=== PATIENT | male | born 2000 | race Caucasian/White ===

== ENCOUNTER 2023-09-25 10:22 | Emergency (ER) | payer SELFPAY ==
[2023-09-25 11:01] VITALS: BP 144/97; PULSE 95; RESP 20; TEMP 37.1; O2SAT 97; BMI 32.3
--- NOTE | 2023-09-25 11:01 | ED_ITS ---
HPI - Nausea/Vomiting/Diarrhea General Chief complaint: GI Bleed Stated complaint: Vomiting blood Time Seen by Provider: 09/25/23 12:51 History of Present Illness HPI Narrative: Pt with 2 history of vomiting up bright red blood, hx stomach ulcers and vomiting blood with last diagnosed ulcer in February. Previously on Omeprazole for the ulcers but ran out. Wants to be tested to stomach cancer as it runs in the family. Discussed GI follow up and need for endoscopy. Denies ETOH use. Omeprazole sent to pharmacy as pt states his prescription ran out. Left without completing treatment Related Data Previous Rx's Medication Instructions Recorded omeprazole 20 mg capsule,delayed 20 mg PO DAILY #14 caps 09/25/23 release Allergies Allergy/AdvReac Type Severity Reaction Status Date / Time No Known Allergies Allergy Verified 09/25/23 11:03 [facility] Social History Social History Advance Directives: No Advance Directives Information Provided: No Physical Exam 2 Vital Signs: Vital Signs: Last Vital Signs Temp 98.8 F 09/25/23 11:01 Pulse 95 09/25/23 11:01 Resp 20 09/25/23 11:01 BP 144/97 H 09/25/23 11:01 Pulse Ox 97 09/25/23 11:01 O2 Del Method Room Air 09/25/23 11:01 BMI result Body Mass Index 32.3 Course Course Course Narrative: This is a rapid medical exam: Additional HPI, ROS, PE not included below will be deferred to primary provider. Pt with 2 history of vomiting up bright red blood, hx stomach ulcers and vomiting blood with last diagnosed ulcer in February. Previously on Omeprazole for the ulcers but ran out. Wants to be tested to stomach cancer as it runs in the family. Discussed GI follow up and need for endoscopy. Denies ETOH use. Omeprazole sent to pharmacy as pt states his prescription ran out. Left without completing treatment Medical Decision Making Lab Data 09/25/23 11:31 09/25/23 11:31 Labs: Lab Results 09/25/23 Range/Units 11:31 WBC 11.2 H (4.8-10.8) X10*3/uL RBC 5.40 (4.60-5.80) X10*6/uL Hgb 16.0 (14.0-18.0) g/dl Hct 46.9 (42.0-52.0) % MCV 86.9 (80.0-98.0) fL MCH 29.6 (27.0-33.0) pg MCHC 34.1 (31.0-36.0) g/dl RDW 13.5 (11.0-16.0) % Plt Count 297 (160-400) X10*3/uL MPV 9.2 L (9.4-12.4) fL Immature Gran % (Auto) 0.3 (0.0-0.4) % Neut % (Auto) 66.9 (45-73) % Lymph % (Auto) 20.1 (20-40) % [place] % (Auto) 11.4 H (2-11) % Eos % (Auto) 1.1 (0-4) % Baso % (Auto) 0.2 (0-2) % Lymph # (Auto) 2.2 (1.2-4.9) X10*3/uL [place] # (Auto) 1.3 H (0.1-1.2) X10*3/uL Eos # (Auto) 0.1 (0.0-0.4) X10*3/uL Baso # (Auto) 0.0 (0.0-0.2) X10*3/uL Abs Immat Gran (auto) 0.03 (0.00-0.03) X10*3/uL Absolute Neuts (auto) 7.5 (2.0-8.3) x10*3/uL Absolute Nucleated RBC 0.000 (0.0-0.012) X10*3/uL Nucleated RBC % (auto) 0.0 (0.0-0.2) /100WBC Sodium 138 (135-145) mmol/L Potassium 3.9 (3.3-5.1) mmol/L Chloride 105 (96-108) mmol/L Carbon Dioxide 28 (22-29) mmol/L Anion Gap 9 L (12-20) BUN 11 (9-16) mg/dL Creatinine 0.80 (0.5-1.4) mg/dL Estim Creat Clear Calc 151.4 Estimated GFR > 60 Random Glucose 94 (60-115) mg/dL Calcium 9.5 (8.4-10.2) mg/dL Total Bilirubin 1.2 H (0.0-1.0) mg/dL AST 17 (5-37) U/L ALT 31 (0-40) U/L Alkaline Phosphatase 62 (39-117) U/L Total Protein 7.5 (6.5-8.0) g/dL Albumin 4.1 (3.5-5.0) g/dL Discharge Plan Discharge Clinical Impression: Left before treatment completed Patient Disposition: Left W/O Completing Treatment Prescriptions: New omeprazole 20 mg capsule,delayed release(DR/EC) 20 mg PO DAILY Qty: 14 0RF Referrals: [facility] [place] Gastroenterology Services [Provider Group] [facility] [place] [facility] [place] [facility] [place]Provider Group[place] [facility] [place] [facility] [place]] Stand Alone Forms: Work/School Release Interventions: LWBS Worksheet Last Done: 09/25/23 13:32 Discharge Date/Time: 09/25/23 13:32 Print Language: Sammarinese
[2023-09-25 11:39] LABS: MANUAL DIFF FLAG NO
[2023-09-25 11:40] LABS: Basophils Percent Auto 0.2 % (0-2); Eosinophils Absolute Auto 0.1 X10*3/uL (0.0-0.4); Eosinophils Percent Auto 1.1 % (0-4); Hematocrit 46.9 % (42.0-52.0); Imm Gran Abs Auto 0.03 X10*3/uL (0.00-0.03); Imm Gran Pct Auto 0.3 % (0.0-0.4); Lymphocytes Absolute Auto 2.2 X10*3/uL (1.2-4.9); Lymphocytes Percent Auto 20.1 % (20-40); Mean Corpuscular HGB Conc 34.1 g/dl (31.0-36.0); Mean Corpuscular Hemoglobin 29.6 pg (27.0-33.0); Mean Corpuscular Volume 86.9 fL (80.0-98.0); Mean Platelet Volume 9.2 fL (9.4-12.4); Monocytes Absolute Auto 1.3 X10*3/uL (0.1-1.2); Monocytes Percent Auto 11.4 % (2-11); Neutrophils Absolute Auto 7.5 x10*3/uL (2.0-8.3); Neutrophils Percent Auto 66.9 % (45-73); Platelet Count 297 X10*3/uL (160-400); Red Cell Distribution Width 13.5 % (11.0-16.0); White Blood Count 11.2 X10*3/uL (4.8-10.8)
[2023-09-25 12:00] LABS: Alanine Aminotransferase 31 U/L (0-40); Albumin Level 4.1 g/dL (3.5-5.0); Alkaline Phosphatase 62 U/L (39-117); Anion Gap 9 (12-20); Aspartate Amino Transferase 17 U/L (5-37); Bilirubin Total 1.2 mg/dL (0.0-1.0); Blood Urea Nitrogen 11 mg/dL (9-16); Calcium 9.5 mg/dL (8.4-10.2); Carbon Dioxide 28 mmol/L (22-29); Chloride 105 mmol/L (96-108); Creatinine Clr Calc Pharmacy 151.4; Estimated Glomerular Filt Rate > 60; Glucose Random 94 mg/dL (60-115); Potassium 3.9 mmol/L (3.3-5.1); Sodium 138 mmol/L (135-145); Total Protein 7.5 g/dL (6.5-8.0)
== END 2023-09-25 13:32 | disposition left against medical advice (07) ==
PROVIDERS: Nurse Practitioner Family; Emergency Provider Emergency Medicine
DX: K92.0 Hematemesis (principal); K25.9 Gastric ulcer, unspecified as acute or chronic, without hemorrhage or perforation; Z80.0 Family history of malignant neoplasm of digestive organs
CPT/HCPCS: 36415; 80053; 85025; 99281; 99283

== ENCOUNTER 2023-10-30 21:18 | Emergency (ER) | payer OTHER, SELFPAY ==
--- NOTE | ~2023-10-30 | XR_ITS ---
EXAMINATION: XR LUMBOSACRAL SPINE CLINICAL INFORMATION: Pain. COMPARISON: None available. TECHNIQUE: Three views of the lumbosacral spine. FINDINGS: The vertebral bodies and posterior elements are normal. The disc spaces are preserved and the vertebral alignment is normal. The paraspinal soft tissues are normal. XR/XR lumbar spine 2-3V IMPRESSION: Unremarkable examination.
[2023-10-30 21:26] VITALS: BP 149/93; PULSE 119; RESP 16; TEMP 36.8; O2SAT 99; BMI 36.0
[2023-10-31 00:22] VITALS: BP 136/85; PULSE 105; RESP 14; TEMP 36.6; O2SAT 98
--- NOTE | 2023-10-31 04:55 | PC.NURSE ---
Pt upset and asking when he is going to be seen by a doctor and get something for pain. Pt also requesting a copy of his xray. Advised that the provider is working as fast as possible and I cannot give him a copy of his xray reading. Pt states can I at least get something for the pain? Pt offered tylenol or ibuprofen for pain and states Nah! fuck that! Ambulatory out of department with steady gait and all personal belongings with family.
[2023-10-31 04:56] VITALS: BP 136/75; PULSE 88; RESP 16; TEMP 36.9; O2SAT 98
--- NOTE | 2023-10-31 04:58 | PC.NURSE ---
LWBS over frustration due to lengthy wait to see an MD from a care space.
== END 2023-10-31 05:00 | disposition left against medical advice (07) ==
PROVIDERS: Emergency Provider Emergency Medicine
DX: S39.92XA Unspecified injury of lower back, initial encounter (principal); X58.XXXA Exposure to other specified factors, initial encounter; Y93.9 Activity, unspecified; Y92.9 Unspecified place or not applicable; Y99.0 Civilian activity done for income or pay
CPT/HCPCS: 72100; 99282; 99283